=== PATIENT | female | born 1940 | race Hispanic/Latino ===

== ENCOUNTER → 2017-10-30 | Outpatient (CLI) | payer OTHER ==
[~2017-10-30] MED LIST: ASPI-1012 PO; HYDR-2132 PO; LISI-613 PO; ROSU10TA PO
== END | disposition home or self-care (01) ==
LOC: RAH 08:04
PROVIDERS: ATTEND Family Medicine
DX: Z12.31 Encounter for screening mammogram for malignant neoplasm of breast (principal)
CPT/HCPCS: 77067

== ENCOUNTER → 2019-10-23 | Outpatient (CLI) | payer OTHER ==
[~2019-10-23] MED LIST changes: -ROSU10TA PO; +ROSU10TA22 PO
== END | disposition home or self-care (01) ==
LOC: RAH 09:55
PROVIDERS: ATTEND Family Medicine
DX: Z12.31 Encounter for screening mammogram for malignant neoplasm of breast (principal)
CPT/HCPCS: 77067

== ENCOUNTER → 2022-10-24 | Outpatient (CLI) | payer OTHER ==
[~2022-10-24] MED LIST changes: -LISI-613 PO; +LISI20TA24 PO
== END | disposition home or self-care (01) ==
LOC: RAH 08:12
PROVIDERS: ATTEND Family Medicine
DX: Z12.31 Encounter for screening mammogram for malignant neoplasm of breast (principal)
CPT/HCPCS: 77067